=== PATIENT | male | born 1990 | race Caucasian/White ===

== ENCOUNTER 2016-04-23 14:08 | Emergency (ER) | payer BC, OTHER ==
[2016-04-23 14:30] VITALS: BP 124/64; PULSE 82; RESP 16; TEMP 98.2; O2SAT 96
--- NOTE | 2016-04-23 15:13 | UCPHY ---
H & P Time Seen by Provider: 04/23/16 15:04 Patient Type: Established HPI/ROS: CHIEF COMPLAINT: Rash on face HISTORY OF PRESENT ILLNESS: 25-year-old male reports he had ingrown hair several days ago. It developed a small pimple which he popped and then removed the ingrown hair. Since that time he has noticed spreading rash which is itchy and crusty. Rash is limited to the left cheek and daislva. He has noticed that the area felt somewhat warm to the touch. Small amount of redness onto his neck. No fever or vomiting. No systemic symptoms. No nausea, headache. No fever, chills, chest pain, shortness of breath, palpitations, vomiting, diarrhea, urinary complaints, headache, lightheadedness. REVIEW OF SYSTEMS: Aside from elements discussed in the HPI, a comprehensive 10-point review of systems was reviewed and is negative. PAST MEDICAL HISTORY: Denies. SOCIAL HISTORY: Smoker. VITAL SIGNS: see nurse's notes. GENERAL: Well-developed, well-nourished, in no acute distress. HEENT: Scattered, pustules with Amaya discharge across the left cheek. Indurated area where the ingrown hair had been removed. No fluctuance. No adenopathy. Oropharynx is clear. Neck is supple. NEURO: Alert and oriented, grossly nonfocal. Smoking Status: Heavy smoker Constitutional: Initial Vital Signs Temperature (C) 36.8 C 04/23/16 14:27 Heart Rate 82 04/23/16 14:27 Respiratory Rate 16 04/23/16 14:27 Blood Pressure 124/64 H 04/23/16 14:27 O2 Sat (%) 96 04/23/16 14:27 O2 Delivery Mode Room Air Allergies/Adverse Reactions: No Known Allergies Allergy (Verified 04/23/16 14:25) Home Medications: Medication Instructions Recorded No Medications [No Known] 03/28/12 Cephalexin [Keflex (RX)] 500 mg PO QID 5 Days 04/23/16 MDM/Departure - [facility] ED Course/Re-evaluation: Suspect impetigo. Patient placed on Keflex given some difficulty in obtaining dicloxacillin prescription. Advised to follow-up if not improving as expected. Doubt MRSA as no evidence abscess developing. Differential Diagnosis: Differential diagnoses for the patient's symptom complex was considered including but not limited to impetigo, folliculitis, MRSA, MSSA, cellulitis, abscess. - Depart Disposition: Home, Routine, Self-Care Clinical Impression: Impetigo Condition: Good Instructions: Impetigo (ED), Folliculitis (ED) Additional Instructions: Please take antibiotic as directed. If your infection is not improving in the next 24-36 hours, and certainly if it is getting worse, you need to return to Urgent Care follow up with her primary care physician. There is a small chance that the infection may not be sensitive to the dicloxacillin, however, I think that it looks so much like impetigo we will be able to start with classic treatment. Prescriptions: Cephalexin [Keflex (RX)] 500 mg PO QID 5 Days Referrals: Kirt Eden, DO [Primary Care Provider] - As per Instructions - PQRS PQRS Measurement: Not applicable
== END 2016-04-23 15:35 | disposition home or self-care (01) ==
LOC: CED 14:08
DX: L01.00 Impetigo, unspecified (principal); F17.200 Nicotine dependence, unspecified, uncomplicated
CPT/HCPCS: 99214-PO; G0463-PO

== ENCOUNTER 2017-12-21 02:43 | Emergency (ER) | payer BC, OTHER ==
[2017-12-21] MEDS ORDERED: HYDROCODONE/APAP 5/325 TAB PO ONE (03:03)
--- NOTE | 2017-12-21 03:07 | EDPHY ---
H & P Time Seen by Provider: 12/21/17 02:52 HPI/ROS: CC: "locked" left knee HPI: This 27-year-old male with past medical history of a remote (9 years ago) skateboarding injury where he states he fell directly on his left knee from approximately 5 ft, presents tonight with a locked left knee which occurred while he was sleeping on his side on the couch. This has happened one other time before after the injury and his mother was able to straighten his leg out at which time they heard a loud pop. He currently cannot extend his left knee due to pain. He feels like the pain is under the patella. He describes it as sharp and 8/10 with movement. Took 800 mg of ibuprofen prior to arrival. He has had no recent injury. He has never had imaging on this knee. No other complaints. REVIEW OF SYSTEMS: Constitutional: No fever. Eyes: No discharge. ENT: No sore throat. Respiratory: No cough, no shortness of breath. Musculoskeletal: No back pain. Skin: No rashes. Neurological: No numbness or tingling. Past Medical/Surgical History: PMH: Denied PSH: Facial reconstruction surgery FH: Mother has MS NKDA Medications: None PCP: none Social History: Smokes one ppd tobacco; drinks moderately; daily marijuana Smoking Status: Heavy smoker Physical Exam: General Appearance: Alert, mild distress. Eyes: Pupils equal and round no pallor or injection. ENT, Mouth: Mucous membranes are moist. Respiratory: There are no retractions. Non labored. Cardiovascular: Normal peripheral perfusion. Neurological: Awake and alert, sensory exam normal. Skin: Warm and dry, no rashes. Musculoskeletal: Neck is supple nontender. Extremities are symmetrical, Left knee held in approximately 60 flexion; increased pain under patella with attempted extension; pain in knee with internal and external rotation of foot. DP pulses intact. Psychiatric: Patient is oriented X 3, there is no agitation. DIFFERENTIAL DIAGNOSIS: After history and physical exam differential diagnosis was considered for but not limited to: "locked knee" vs. "pseudo-locked" knee, torn meniscus, loose body, patellar dislocation. Constitutional: Initial Vital Signs Temperature (C) 98.4 F 12/21/17 02:46 Heart Rate 85 12/21/17 02:46 Respiratory Rate 16 12/21/17 02:46 Blood Pressure 129/79 H 12/21/17 02:46 O2 Sat (%) 96 12/21/17 02:46 O2 Delivery Mode Room Air Allergies/Adverse Reactions: No Known Allergies Allergy (Verified 04/23/16 14:25) Home Medications: Medication Instructions Recorded No Medications [No Known] 03/28/12 Medical Decision Making - Diagnostics Imaging Results: Negative plain films left knee as read by me. Imaging: I viewed and interpreted images myself ED Course/Re-evaluation: The patient was seen and examined. Vital signs reviewed. X-rays of the left knee showed no bony abnormality. No definite effusion. Various ranges of motion did not reduce the knee to normal anatomic position. The patient was discussed with Dr. Ady Wright, orthopedics, who states the patient needs an MRI of the knee. With the patient's knee locked in position it would be reasonable to send him to the main ED for the study. However, the patient would like to do this as an outpatient. Dr. Wright has advised that the patient should be given a straight leg immobilizer. Should the leg jostle itself back into place, the patient should lock the leg in extension with the immobilizer. Dr. Wright will see the patient in the office and arrange for an MRI. Prior to discharge the patient was able to extend the leg almost back to normal anatomic position but he states it feels like there is something still presenting him from full extension. The knee immobilizer was placed and he was given crutches. He was given a take-home pack of hydrocodone. - Data Points Medications Given: Discontinued Medications Hydrocodone Bitart/Acetaminophen ([place] 5/325) 2 tab PO EDNOW ONE Stop: 12/21/17 03:04 Last Admin: 12/21/17 03:08 Dose: 2 tab Departure - Departure Disposition: Home, Routine, Self-Care Clinical Impression: Locking of left knee Condition: Good Instructions: Hydrocodone/Acetaminophen (By mouth), Knee Pain (ED), Knee Immobilizer (ED), Meniscus Tear (ED), Knee Arthroscopy (DC) Additional Instructions: If knee returns to normal anatomic position, lock it in extension (fully straight) with the knee immobilizer as directed. Ibuprofen for pain as directed. Hydrocodone/acetaminophen only for severe pain. Call Dr. Wright's office today to arrange follow up. Tell them you are an ER follow up and Dr. Wright was contacted from the ER. You will be needing an MRI of your knee. Return to the ER if any further problems or concerns. Referrals: Patient,NotPresent [Primary Care Provider] - As per Instructions Ady Wright MD [Medical Doctor] - As per Instructions Stand Alone Forms: Work Excuse
[2017-12-21] MEDS ORDERED: HYDROCOD/APAP 5/325 PREPACK#6 BTL TAKEHOME ONE (03:54)
[2017-12-21 04:25] VITALS: BP 120/74
== END 2017-12-21 04:00 | disposition home or self-care (01) ==
LOC: CED 02:43
DX: M23.92 Unspecified internal derangement of left knee (principal)
CPT/HCPCS: 73564-PO; L1830